=== PATIENT | female | born 1950 | race Caucasian/White ===

== ENCOUNTER 2024-07-13 16:07 | Emergency (ER) | payer OTHER ==
[2024-07-13] MEDS ORDERED: ONDANSETRON 4 MG/2 ML VIAL ONE (16:28)
[2024-07-13] MEDS ORDERED: MORPHINE 4 MG/ML SYR ONE (16:28)
--- NOTE | 2024-07-13 17:21 | ER ---
Nurse's Notes [facility] Name: Nicole Hilliard Age: 74 yrs Sex: Female : 1950 Arrival Date: 07/13/2024 Time: 16:07 Bed 8 Private MD: Diagnosis: Left humeral head fracture, fall Presentation: 07/13 16:13 Chief complaint: EMS states: Tripped coming down RV stairs, states, " I think my dog ph tripped me", C/O pain to L shoulder and upper arm, L knee and L ankle, did not hit her head, no LOC, no blood thinners. Coronavirus screen: Vaccine status: Patient reports receiving the 2nd dose of the covid vaccine. Ebola Screen: No symptoms or risks identified at this time. Initial Sepsis Screen: Does the patient meet any 2 criteria? No. Patient's initial sepsis screen is negative. Does the patient have a suspected source of infection? No. Patient's initial sepsis screen is negative. Risk Assessment: Do you want to hurt yourself or someone else? Patient reports no desire to harm self or others. Onset of symptoms was July 13, 2024. 16:13 Method Of Arrival: EMS: [facility] 16:13 Acuity: TREVOR 3 ph Triage Assessment: 16:15 General: Appears in no apparent distress. uncomfortable, Behavior is calm, cooperative. ph Pain: Complains of pain in anterior aspect of left shoulder and left bicep. Pain: Complains of pain in left knee and anterior aspect of left ankle. Neuro: Level of Consciousness is awake, alert, obeys commands, Oriented to person, place, time, situation. Cardiovascular: Capillary refill < 3 seconds in bilateral fingers Patient's skin is warm and dry. Respiratory: Airway is patent Respiratory effort is even, unlabored. Derm: Skin is pink, warm \\T\\ dry. Historical: - PMHx: 16:15 Hypertensive disorder; breast cancer; ph - PSHx: 16:15 mastectomy (double); ph - Immunization history:: Adult Immunizations unknown. - Infectious Disease History:: Denies. - Social history:: Smoking status: Patient denies any tobacco usage or history of. Screenin:16 [facility] ED Fall Risk Assessment (Adult) History of falling in the last 3 months, ph including since admission Yes- single mechanical fall (1 pt) Confusion or Disorientation No (0 pts) Intoxicated or Sedated No (0 pts) Impaired Gait No (0 pts) Mobility Assist Device Used No (0 pt) Altered Elimination No (0 pt) Score/Fall Risk Level 0 - 2 = Low Risk Oriented to surroundings, Maintained a safe environment, Hourly rounding (assess needs \\T\\ fall precautionary measures) done. Abuse screen: Denies threats or abuse. Denies injuries from another. Nutritional screening: No deficits noted. Tuberculosis screening: No symptoms or risk factors identified. Assessment: 17:07 General: SEE TRIAGE ASSESSMENT. ph Vital Signs: 16:13 BP 150 / 71; Pulse 86; Resp 18; Temp 97.6; Pulse Ox 98% on R/A; Weight 106.59 kg; ph Height 5 ft. 5 in. ; 17:07 BP 146 / 55; Pulse 83; Resp 18; Pulse Ox 99% on R/A; ph 17:56 Temp 97.5; ph 16:13 Body Mass Index 39.11 (106.59 kg, 165.1 cm) ph ED Course: 16:11 Patient arrived in ED. eb 16:11 Julian Tejada MD is Attending Physician. sp3 16:13 Keely Lozoya, RN is Primary Nurse. ph 16:14 Triage completed. ph 16:16 Arm band placed on Patient placed in an exam room, on pulse oximetry. ph 16:17 Patient has correct armband on for positive identification. Bed in low position. Call ph light in reach. Side rails up X2. Door closed. Noise minimized. Warm blanket given. 16:30 Maintain EMS IV. Dressing intact. Good blood return noted. Site clean \\T\\ dry. Gauge \\T\\ ph site: 18 rac. Flushed with 10 mL NS. 17:19 Jose L Ng MD is Referral Physician. sp3 17:33 Shoulder Left (2 View) XRAY In Process Unspecified. EDMS 17:33 CXR XRAY In Process Unspecified. EDMS 17:33 Knee Left 2 View XRAY In Process Unspecified. EDMS 17:33 Ankle Left 2 View XRAY In Process Unspecified. EDMS 17:33 Foot Left 3 View XRAY In Process Unspecified. EDMS 17:56 IV discontinued, intact, bleeding controlled, No redness/swelling at site. Pressure ph dressing applied. Sling applied to left arm. 17:57 No provider procedures requiring assistance completed. ph Administered Medications: 16:33 Drug: morphine IVP or IV 4 mg IVP once over 4 mins Route: IVP; Infused Over: 4 mins; ph Site: right antecubital; 16:46 Follow up: Response: No adverse reaction; Pain is decreased ph 16:33 Drug: Ondansetron IVP 4 mg IVP once; over 2 minutes Route: IVP; Site: right antecubital;ph 16:45 Follow up: Response: No adverse reaction ph Medication: 16:16 VIS not applicable for this client. ph Outcome: 17:21 Discharge ordered by MD. [email or web address] 17:57 Discharged to home via wheelchair, with significant other, ph 17:57 Condition: good 17:57 Discharge instructions given to patient, significant other, Instructed on discharge instructions, follow up and referral plans. medication usage, Demonstrated understanding of instructions, follow-up care, medications, 17:57 Patient left the ED. ph Signatures: Dispatcher [employer] Keely Bermudez RN RN ph Botello, Elizabeth eb Patel, Setul, MD MD sp3
--- NOTE | 2024-07-13 17:21 | EDPHYS ---
Physician Documentation [facility] Name: Nicole Hilliard Age: 74 yrs Sex: Female : 1950 Arrival Date: 07/13/2024 Time: 16:07 Bed 8 Private MD: ED Physician Julian Tejada HPI: 07/13 16:20 This 74 yrs old Female presents to ER via EMS with complaints of fall with multiple sp3 injuries. 16:21 74-year-old female with history of hypertension and distant breast cancer now presents sp3 to the ED with a mechanical fall out of an RV where she tripped over her dog. Patient landed on her left side without head injury. She states her injuries are her left shoulder, left knee and left foot/ankle. EMS gave fentanyl prior to arrival for pain control. Her biggest complaint is her left shoulder. She denies hitting her head and denies any headache, neck pain, chest pain, back pain, abdominal pain, other extremity pain other than her left upper and left lower extremity, medical prodrome to the event, or any other signs or symptoms on ROS at this time. She is on no anticoagulants or antiplatelet agents.. Historical: - PMHx: 16:15 Hypertensive disorder; breast cancer; ph - PSHx: 16:15 mastectomy (double); ph - Immunization history:: Adult Immunizations unknown. - Infectious Disease History:: Denies. - Social history:: Smoking status: Patient denies any tobacco usage or history of. ROS: 16:22 Constitutional: Negative for fever, chills, and weight loss, Eyes: Negative for injury, sp3 pain, redness, and discharge, ENT: Negative for injury, pain, and discharge, Neck: Negative for injury, pain, and swelling, Cardiovascular: Negative for chest pain, palpitations, and edema, Respiratory: Negative for shortness of breath, cough, wheezing, and pleuritic chest pain, Abdomen/GI: Negative for abdominal pain, nausea, vomiting, diarrhea, and constipation, Back: Negative for injury and pain, Skin: Negative for injury, rash, and discoloration, Neuro: Negative for headache, weakness, numbness, tingling, and seizure, Psych: Negative for depression, anxiety, suicide ideation, homicidal ideation, and hallucinations, Allergy/Immunology: Negative for hives, rash, and allergies, Endocrine: Negative for neck swelling, polydipsia, polyuria, polyphagia, and marked weight changes, Hematologic/Lymphatic: Negative for swollen nodes, abnormal bleeding, and unusual bruising, 16:22 All other systems are negative, Exam: 16:22 Constitutional: This is a well developed, well nourished patient who is awake, alert, sp3 and in no acute distress. Head/Face: Normocephalic, atraumatic. Eyes: Pupils equal round and reactive to light, extra-ocular motions intact. Lids and lashes normal. Conjunctiva and sclera are non-icteric and not injected. Cornea within normal limits. Periorbital areas with no swelling, redness, or edema. ENT: Nares patent. No nasal discharge, no septal abnormalities noted. External auditory canals are clear. Oropharynx with no redness, swelling, or masses, exudates, or evidence of obstruction, uvula midline. Mucous membranes moist. Neck: Trachea midline, no thyromegaly or masses palpated, and no cervical lymphadenopathy. Supple, full range of motion without nuchal rigidity, or vertebral point tenderness. No Meningismus. Chest/axilla: Normal chest wall appearance and motion. Nontender with no deformity. No lesions are appreciated. Cardiovascular: Regular rate and rhythm with a normal S1 and S2. No gallops, murmurs, or rubs. Normal PMI, no JVD. No pulse deficits. Respiratory: Lungs have equal breath sounds bilaterally, clear to auscultation and percussion. No rales, rhonchi or wheezes noted. No increased work of breathing, no retractions or nasal flaring. Abdomen/GI: Soft, non-tender, with normal bowel sounds. No distension or tympany. No guarding or rebound. No evidence of tenderness throughout. Back: No spinal tenderness. No costovertebral tenderness. Full range of motion. Neuro: Awake and alert, GCS 15, oriented to person, place, time, and situation. Cranial nerves II-XII grossly intact. Motor strength 5/5 in all extremities. Sensory grossly intact. Cerebellar exam normal. Normal gait. Psych: Awake, alert, with orientation to person, place and time. Behavior, mood, and affect are within normal limits. 16:22 Musculoskeletal/extremity: Patient has pain to palpation or any movement of the left shoulder. Distal neurovascular exam normal at the elbow and left hand. Mild pain to palpation over her left knee and left foot/ankle.. Vital Signs: 16:13 BP 150 / 71; Pulse 86; Resp 18; Temp 97.6; Pulse Ox 98% on R/A; Weight 106.59 kg; ph Height 5 ft. 5 in. ; 17:07 BP 146 / 55; Pulse 83; Resp 18; Pulse Ox 99% on R/A; ph 17:56 Temp 97.5; ph 16:13 Body Mass Index 39.11 (106.59 kg, 165.1 cm) ph MDM: 16:13 Medical Screening Exam initiated sp3 16:24 Data reviewed: vital signs, nurses notes, radiologic studies. ED course: 74-year-old sp3 female with PMH above with mechanical fall with injury to the left shoulder and left knee and left foot/ankle. X-rays pending of all. Consider contusion versus strain versus fracture on all affected areas. Disposition pending workup and patient course. Morphine and Zofran in the ED for pain control. . 17:18 ED course: Left humeral head fracture noted. Remainder of x-rays negative. Will place sp3 in a sling and refer to orthopedics and discharged on pain medication.. 04 16:13 Order name: Shoulder Left (2 View) XRAY; Complete Time: 17:43 sp3 07/13 16:13 Order name: CXR XRAY; Complete Time: 17:43 sp3 07/13 16:13 Order name: Knee Left 2 View XRAY; Complete Time: 17:43 sp3 07/13 16:13 Order name: Ankle Left 2 View XRAY; Complete Time: 17:43 sp3 07/13 16:13 Order name: Foot Left 3 View XRAY; Complete Time: 17:43 sp3 07/13 17:19 Order name: Sling sp3 Administered Medications: 16:33 Drug: morphine IVP or IV 4 mg IVP once over 4 mins Route: IVP; Infused Over: 4 mins; ph Site: right antecubital; 16:46 Follow up: Response: No adverse reaction; Pain is decreased ph 16:33 Drug: Ondansetron IVP 4 mg IVP once; over 2 minutes Route: IVP; Site: right antecubital;ph 16:45 Follow up: Response: No adverse reaction ph Disposition Summary: 07/13/24 17:21 Discharge Ordered Notes: Location: Home sp3 Condition: Stable sp3 Diagnosis - Left humeral head fracture, fall sp3 Followup: sp3 - With: Jose L Ng MD - When: Upon discharge from the Emergency Department - Reason: Recheck today's complaints Discharge Instructions: - Discharge Summary Sheet sp3 - Humerus Fracture Treated With Immobilization sp3 Forms: - Medication Reconciliation Form sp3 - Antibiotic Education sp3 - Prescription Opioid Use sp3 - Patient Portal Instructions sp3 - Leadership Thank You Letter sp3 Prescriptions: - Tramadol 50 mg Oral Tablet - take 1 tablet ORAL route every 8 hours as needed; 12 tablet; Refills: 0, sp3 Product Selection Permitted Signatures: Dispatcher [employer] EDKeely Tinoco RN RN ph Julian Tejada MD MD sp3 Corrections: (The following items were deleted from the chart) 16:13 16:13 Chest Single View+RAD.RAD.BRZ ordered. EDMS EDMS 16:13 16:13 Knee Left 2 View+RAD.RAD.BRZ ordered. EDMS EDMS 16:13 16:13 Ankle Left 2 View+RAD.RAD.BRZ ordered. EDMS EDMS 16:13 16:13 Foot Left 3 View+RAD.RAD.BRZ ordered. EDMS EDMS
--- NOTE | 2024-07-13 17:40 | RAD REPORT ---
EXAMINATION: Shoulder Left 2+ Views VIEWS: As above CLINICAL INDICATION: Female, 74 years old. PAIN COMPARISON: No prior exam. IMPRESSION: Impacted, comminuted fracture of the left proximal humerus involving the surgical neck and likely the greater and lesser tuberosity.
--- NOTE | 2024-07-13 17:40 | RAD REPORT ---
EXAM: Knee Left 2 View INDICATION: trauma;Pain COMPARISON: None FINDINGS: No acute fracture. Small nonspecific knee effusion. Moderate tricompartmental degenerative changes which are most advanced in the patellofemoral compartm ent. Other: N/A IMPRESSION: No acute osseous abnormality involving the imaged knee.
--- NOTE | 2024-07-13 17:41 | RAD REPORT ---
EXAM: Chest Single View HISTORY: 74 years Female TRAUMA COMPARISON: None. FINDINGS: LUNGS/PLEURA: The lungs are clear. No pleural effusions or pneumothorax. No pulmonary edema. CARDIAC/MEDIASTINUM: The cardiac silhouette is within normal limits. UPPER ABDOMEN: No significant abnormality. BONES: No acute abnormality. LINES/TUBES/OTHER: N/A IMPRESSION: No evidence of acute cardiopulmonary disease.
--- NOTE | 2024-07-13 17:41 | RAD REPORT ---
EXAM: Foot Left 3 View HISTORY: trauma COMPARISON: None FINDINGS: Bones: No acute fracture identified. Alignment:No significant malalignment. Degenerative changes:Calcaneal spurs. Other: n/a IMPRESSION: No acute osseous abnormality.
--- NOTE | 2024-07-13 17:42 | RAD REPORT ---
EXAMINATION: Ankle Left 2 View CLINICAL INDICATION: Female, 74 years old. trauma COMPARISON: No prior exam. FINDINGS: No acute fracture. No malalignment/dislocation. Calcaneal spurs. Other: n/a IMPRESSION: No acute osseous abnormality.
[2024-07-13 18:24] VITALS: BP 146/55; O2SAT 99
[2024-07-13 18:25] VITALS: TEMP 97.5
== END 2024-07-13 17:57 | disposition home or self-care (01) ==
LOC: ER 16:07
DX: S42.292A Other displaced fracture of upper end of left humerus, initial encounter for closed fracture (principal); W01.0XXA Fall on same level from slipping, tripping and stumbling without subsequent striking against object, initial encounter
CPT/HCPCS: 71045; 73630; 73030; 73560; 73600; 96375; 96374; 99284; J2405